=== PATIENT | female | born 1985 | race Caucasian/White ===

== ENCOUNTER 2016-08-25 08:41 | Emergency (ER) | payer OTHER ==
[~2016-08-25 08:41] MED LIST: ALBUTEROL17 GM INH; ALLEGRA-D1 TAB.SR1 PO; BACITRACIN30 GM TOP; BUSPAR PO; CEFZIL PO; CIPRO PO; FLAGYL250 MG VAG; IBUPROFEN800 MG PO; LEVAQUIN PO; NASAL SPRAY; NO MEDICATIONS; PERCOCET5/325 PO; PHENERGAN25 MG PO; PREDNISONE PO; PRILOSEC40 MG PO; ROBITUSSIN A-C S5 ML PO; SKELAXIN PO; ULTRAM PO; ZOFRAN PO; ZOVIRAX PO; ZYRTEC PO; [UNRECOGNIZED DRUG - OTHER] PO
[2016-08-25] MEDS ORDERED: BIRTH CONTROL PILL PO (08:47)
== END 2016-08-25 09:56 | disposition home or self-care (01) ==
LOC: SED 08:41
DX: B86 Scabies (principal); J45.909 Unspecified asthma, uncomplicated; Z90.49 Acquired absence of other specified parts of digestive tract; Z88.8 Allergy status to other drugs, medicaments and biological substances
CPT/HCPCS: 99282